=== PATIENT | female | born 2000 | race Caucasian/White ===

== ENCOUNTER 2023-05-30 19:59 | Emergency (ER) | payer SELFPAY ==
[~2023-05-30] VITALS: Ht 170.2 cm; Wt 59.0 kg
[2023-05-30 20:05] VITALS: BP 127/85; PULSE 90; RESP 17; TEMP 98.9; O2SAT 100
--- NOTE | 2023-05-30 20:05 | NUR ---
TO BED AMBULATORY
--- NOTE | 2023-05-30 20:20 | NUR ---
22 year old F, c/o yellowing of skin and eyes x5 days; pt noticed yellowing to both palms and soles initially then noticed in her eyes. Also reports nausea, but denies vomiting, diarrhea, abd pain, fever. Per pt, she takes about 9 pills of benadryl to fall asleep or few pills of Tylenol when needed. PMH: Insomnia Allergies: NKDA
--- NOTE | 2023-05-30 20:24 | NUR ---
KSENIA Zapata at bedside examining pt.
[2023-05-30 20:58] LABS: BASOPHILS % (AUTO) 0.8 % (0.0-2.0); EOSINOPHILS # (AUTO) 0.1 K/uL (0-0.4); EOSINOPHILS % (AUTO) 1.5 % (0.0-4.0); HEMATOCRIT 33.6 % (36-48); HEMOGLOBIN 11.3 g/dL (12.0-16.0); LYMPHOCYTES # (AUTO) 2.3 K/uL (2.5-16.5); LYMPHOCYTES % (AUTO) 42.4 % (20.5-51.1); MEAN CORPUSCULAR HEMOGLOBIN 29 pg (27-31); MEAN CORPUSCULAR HGB CONC 34 g/dL (33-37); MEAN CORPUSCULAR VOLUME 85.7 fL (80-94); MONOCYTES # (AUTO) 0.5 K/uL (0.8-1.0); MONOCYTES % (AUTO) 9.4 % (1.7-9.3); NEUTROPHILS # (AUTO) 2.5 K/uL (1.8-7.7); NEUTROPHILS % (AUTO) 45.9 % (42.2-75.2); PLATELET COUNT (AUTO) 256 K/uL (140-450); RED BLOOD CELL COUNT(AUTO) 3.92 MIL/uL (4.20-5.40); RED CELL DISTRIBUTION WIDTH 13.4 % (11.6-13.7); WHITE BLOOD COUNT (AUTO) 5.5 K/uL (4.8-10.8)
[2023-05-30 21:13] LABS: ACETAMINOPHEN 1.2 ug/ml (10-30)
[2023-05-30 21:16] LABS: SALICYLATE < 2.8 mg/dL (2.8-20.0)
[2023-05-30 21:30] LABS: ALBUMIN 3.1 g/dL (3.4-5.0); ANION GAP 9.9 (8-16); CARBON DIOXIDE 26.1 mmol/L (21-32); TOTAL BILIRUBIN 0.3 mg/dL (0.0-1.0)
[2023-05-30 22:55] VITALS: BP 115/72; PULSE 85; RESP 16; TEMP 98.9; O2SAT 100
--- NOTE | 2023-05-30 22:55 | NUR ---
Patient discharged with v/s stable. Written and verbal after care instructions given and explained. Patient verbalized understanding. Ambulatory with steady gait. All questions addressed prior to discharge. Advised to follow up with PMD.
== END 2023-05-30 22:55 | disposition home or self-care (01) ==
LOC: MED 19:59
DX: G47.00 Insomnia, unspecified (principal); D64.9 Anemia, unspecified
CPT/HCPCS: 36415; 80053; 81025; 83690; 85025; 99283; G0480